=== PATIENT | female | born 1940 | race Caucasian/White ===

== ENCOUNTER 2019-10-25 10:04 | Outpatient (CLI) | payer MEDICARE, SELFPAY ==
--- NOTE | ~2019-10-25 | CT_ITS ---
EXAMINATION: CT chest wo con EXAM DATE: 10/25/2019 10:30 INDICATION: Personal history of lung cancer TECHNIQUE: Spiral low dose CT of the chest without contrast. Axial, coronal and sagittal images were reviewed. The dose-length product (DLP) for this examination was 133.34 mGy-cm. The exposure was t ailored according to patient size (auto mA exposure control), and iterative reconstruction (ASIR) was used as additional dose reduction technique. There is no prior study for comparison. FINDINGS: Status post partial left pneumonectomy. There is moderate emphysema. Biapical opacities whi ch are predominantly linear, most likely scarring. Tracheobronchial tree is patent. There is no med iastinal, hilar or axillary lymphadenopathy. There are no pleural or pericardial effusions. There is no pneumothorax. Heart normal in size. There is mild coronary arterial calcification, arteria l sclerosis. Fluid density left liver lobe lesion measuring 1.3 cm, consistent with cyst. There is mild thoracic spondylosis without osteoblastic or osteolytic lesions identified. IMPRESSION: 1. Partial left pneumonectomy. 2. Biapical opacities likely scarring. 3. Moderate emphysema. Reviewed, dictated and finalized at location A. CAL ASSISTANT DERMATOLOGY
== END 2019-10-25 10:05 | disposition home or self-care (01) ==
PROVIDERS: PCP Family Medicine
DX: Z85.118 Personal history of other malignant neoplasm of bronchus and lung (principal); J43.9 Emphysema, unspecified; R91.8 Other nonspecific abnormal finding of lung field
CPT/HCPCS: 71250

== ENCOUNTER 2020-02-03 10:50 | Outpatient (CLI) | payer MEDICARE, SELFPAY ==
--- NOTE | ~2020-02-03 | XR_ITS ---
EXAMINATION: XR chest 2V DATE: 02/03/2020 11:14 INDICATION: Cough and shortness of breath, history of lung cancer TECHNIQUE: Frontal and lateral views of the chest are obtained COMPARISON: 08/14/2019 FINDINGS: There are changes of left upper lobectomy. The lungs are free of acute opacities. There is no pleural effusion or pneumothorax. The cardiomediastinal silhouette is normal. There is mild thorac ic spondylosis. Cholecystectomy clips are noted in the right upper quadrant. IMPRESSION: 1. No acute cardiopulmonary abnormality. Reviewed, dictated and finalized at location A.
== END 2020-02-03 10:51 | disposition home or self-care (01) ==
PROVIDERS: PCP Family Medicine; Visit Provider Physician Assistant
DX: R05 Cough (principal); J44.9 Chronic obstructive pulmonary disease, unspecified
CPT/HCPCS: 71046

== ENCOUNTER 2020-03-21 10:28 | Outpatient (CLI) | payer MEDICARE, SELFPAY ==
--- NOTE | ~2020-03-21 | MM_ITS ---
EXAMINATION: MM screening [facility] BI w valerio HISTORY: Screening mammogram TECHNIQUE: Craniocaudal and mediolateral oblique 3-D tomosynthesis images were obtained and synthetic 2-D images were generated. CAD analysis was submitted and interpreted. COMPARISON: 12/14/2018, 12/11/2017, 12/09/2016 BREAST PARENCHYMAL COMPOSITION: There are scattered areas of fibroglandular density. FINDINGS: There is no evidence of suspicious mass, calcification, or architectural distortion to sugg est malignancy in either breast. There has been no suspicious interval change. IMPRESSION: 1. No mammographic evidence of malignancy. 2. Recommend routine screening mammography in one year. BI-RADS Category 1: Negative Reviewed, dictated and finalized at location A.
== END 2020-03-21 10:29 | disposition home or self-care (01) ==
LOC: ANHIMG 10:31
PROVIDERS: PCP Family Medicine; Visit Provider Family Medicine
DX: Z12.31 Encounter for screening mammogram for malignant neoplasm of breast (principal)
CPT/HCPCS: 77063; 77067

== ENCOUNTER 2020-07-21 06:51 | Outpatient (NON) | payer MEDICARE, SELFPAY ==
[2020-07-24 12:52] LABS: SARS-CoV-2 RNA PCR Negative
== END 2020-07-21 06:52 ==
LOC: ANHCOVIDDT 07:07
PROVIDERS: Visit Provider Family Medicine
DX: Z20.828 Contact with and (suspected) exposure to other viral communicable diseases (principal); R05 Cough
CPT/HCPCS: 87635; C9803; U0003

== ENCOUNTER 2020-08-09 16:43 | Outpatient (CLI) | payer MEDICARE, SELFPAY ==
[2020-08-09 17:14] LABS: Basophils Percent Auto 0.5 % (0.2-1.2); Hematocrit 38.4 % (37.0-47.0); Hemoglobin 13.1 g/dL (12.0-15.0); Immature Granulocyte Absolute 0.04 K/mm3 (0.00-0.031); Lymphocytes Absolute Auto 0.64 K/mm3 (0.9-3.2); Lymphocytes Percent Auto 15.2 % (18.3-44.2); Mean Corpuscular HGB Conc 34.1 g/dl (32-36); Mean Corpuscular Hemoglobin 32.3 pg (26-34); Mean Corpuscular Volume 94.8 fl (80-100); Mean Platelet Volume 9.5 fl (7.4-10.4); Monocytes Absolute Auto 0.6 K/mm3 (0.1-0.6); Neutrophils Absolute Auto 2.9 K/mm3 (1.3-6.7); Neutrophils Percent Auto 68.3 % (45.5-73.1); Platelet Count Result 256 k/mm3 (150-375); Red Blood Count 4.05 M/mm3 (4.2-5.4); Red Cell Distribution Width 13.9 % (11.5-14.5); White Blood Count 4.2 K/mm3 (4.5-10.0)
[2020-08-09 17:22] LABS: Add Urine Microscopic? YES; Appearance Urine Cloudy (Clear); Bacteria Urine Trace /hpf; Bilirubin Urine Negative (Negative); Blood Urine Negative (Negative); Color Urine Yellow (Yellow); Glucose Urine UA Negative (Negative); Ketones Urine Negative (Negative); Leukocyte Esterase Ur Negative LEU/UL (NEGATIVE); Mucus Urine Rare /lpf; Nitrate Urine Negative (Negative); Protein Urine Negative (Negative); RBC Urine 0-2 /hpf (0-2); Specific Grav Ur 1.011 (1.001-1.035); Squamous Epithelial Cell Urine Many /hpf (Few); Urobilinogen Urine Negative mg/dL (<2.0); WBC Urine 0-3 /hpf (0-3)
[2020-08-09 17:26] LABS: Alanine Aminotransferase 34 U/L (4-35); Albumin Level 3.7 g/dL (3.5-5.1); Alkaline Phosphatase 40 U/L (38-126); Anion Gap 12 mmol/L (8-16); Aspartate Amino Transferase 82 U/L (14-36); Bilirubin,Total 0.3 mg/dL (0.2-1.3); Blood Urea Nitrogen 40 mg/dL (7-17); Calcium 9.2 mg/dL (8.4-10.2); Carbon Dioxide 23 mmol/L (22-30); Chloride 97 mmol/L (98-107); Estimated Glomerular Filt Rate 15; Glucose 96 mg/dL (65-105); Sodium 132 mmol/L (137-145)
== END 2020-08-09 16:44 | disposition home or self-care (01) ==
LOC: ANHLAB 16:46
PROVIDERS: PCP Family Medicine; Visit Provider Family Medicine
DX: R53.81 Other malaise (principal)
CPT/HCPCS: 36415; 80053; 81001; 85025

== ENCOUNTER 2020-08-10 08:23 | Emergency (ER) | payer MEDICARE, SELFPAY ==
[2020-08-10] VITALS (7 sets, daily range): BP systolic 103–127; BP diastolic 51–76; PULSE 70–87; RESP 21–30; TEMP 36.7–37.4; O2SAT 95–100
--- NOTE | ~2020-08-10 | XR_ITS ---
EXAMINATION: XR chest 1V portable DATE: 08/10/2020 10:01 INDICATION: Shortness of breath. TECHNIQUE: A single frontal view of the chest was obtained. COMPARISON: Chest 2 views 02/03/2020, chest CT 10/25/2019 FINDINGS: There are surgical clips and left lung volume loss from left upper lobectomy. There is a pr ominent right paracardial fat pad. No pneumonia, pleural effusion, or pneumothorax. The heart size is normal. Surgical clips in the right upper quadrant are likely from cholecystectomy. IMPRESSION: 1. No acute cardiopulmonary disease. Reviewed, dictated and finalized at location A. GE OPERATOR SLIP
--- NOTE | 2020-08-10 09:33 | ECG_ITS ---
Measurements Intervals [place] Rate: 77 P: 46 DC: 129 QRS: 31 QRSD: 86 T: 64 QT: 348 QTc: 394 Interpretive Statements SINUS RHYTHM EARLY PRECORDIAL R/S TRANSITION BASELINE ARTIFACT- I, II, III, AVR, AVL, AVF BORDERLINE ECG Electronically Signed On 08-10-2020 10:39:28 CONTROL PANEL BUILDER by Edwin Stringer D.O.
[2020-08-10 09:34] LABS: Basophils Percent Auto 0.6 % (0.2-1.2); Hematocrit 35.9 % (37.0-47.0); Hemoglobin 12.4 g/dL (12.0-15.0); Immature Granulocyte Absolute 0.05 K/mm3 (0.00-0.031); Lymphocytes Absolute Auto 0.69 K/mm3 (0.9-3.2); Lymphocytes Percent Auto 14.2 % (18.3-44.2); Mean Corpuscular HGB Conc 34.5 g/dl (32-36); Mean Corpuscular Volume 92.8 fl (80-100); Mean Platelet Volume 9.7 fl (7.4-10.4); Monocytes Absolute Auto 0.6 K/mm3 (0.1-0.6); Monocytes Percent Auto 12.1 % (2.6-8.5); Neutrophils Absolute Auto 3.5 K/mm3 (1.3-6.7); Neutrophils Percent Auto 72.1 % (45.5-73.1); Platelet Count Result 229 k/mm3 (150-375); Red Blood Count 3.87 M/mm3 (4.2-5.4); Red Cell Distribution Width 13.7 % (11.5-14.5); White Blood Count 4.9 K/mm3 (4.5-10.0)
[2020-08-10 09:42] LABS: Alveolar/Arterial O2 Gradient 80.5 mmHg; Base Excess ABG -3.7 mEq/l (+/-2.0); Device NASAL CANNULA; Fractional Inspired Oxygen 28 %; HCO3 ABG 20.2 mEq/l (22.0-26.0); Oxygen Content ABG 17.5 %vol (16.0-22.0); Oxyhemoglobin 94.6 % THb (90.0-100.0); PCO2 ABG 33.2 mmHg (35.0-45.0); PO2 FiO2 Ratio Arterial Blood 2.86 %; Site Drawn RIGHT BRACHIAL; Total Hemoglobin 13.1 g/dL (12.0-18.0); pH ABG 7.402 (7.350-7.450)
[2020-08-10 09:42] LABS: Prothrombin Time 13.7 Seconds (11.1-14.7)
[2020-08-10 09:46] LABS: Lactic Acid Reflex 1.1 mmol/L (0.7-2.1)
[2020-08-10 09:57] LABS: Alanine Aminotransferase 36 U/L (4-35); Albumin Level 3.5 g/dL (3.5-5.1); Alkaline Phosphatase 41 U/L (38-126); Anion Gap 13 mmol/L (8-16); Aspartate Amino Transferase 91 U/L (14-36); Bilirubin,Total 0.4 mg/dL (0.2-1.3); Blood Urea Nitrogen 42 mg/dL (7-17); CRP 8.4 mg/dL (<1.0); Calcium 8.8 mg/dL (8.4-10.2); Carbon Dioxide 21 mmol/L (22-30); Chloride 98 mmol/L (98-107); Estimated CRCL calculation 10 ml/min; Estimated Glomerular Filt Rate 13; Glucose 97 mg/dL (65-105); Potassium 4.5 mmol/L (3.4-5.0); Sodium 132 mmol/L (137-145)
--- NOTE | 2020-08-10 10:38 | ED.GENADULT ---
HPI - General Adult General Chief complaint: Shortness of Breath/Dyspnea Stated complaint: SOB, fatigue, diarrhea Time Seen by Provider: 08/10/20 09:11 Source: family and EMS Limitations: dementia History of Present Illness HPI narrative: 80 years old white female history of dementia brought to the emergency room by her granddaughter who is telling me that patient been having poor appetite, general weakness, lethargic with long hours of sleep, at least 4 episodes of loose stool since yesterday, unable to manage to stand the and walk without medical assistant internal medicine for the last few days. Patient had history of shortness of breath which is probably worse than usual. Patient was scheduled to get blood work-up today and her granddaughter was not able to assist to her to go to the lab. Brought her to the hospital instead. Currently patient is asymptomatic, Granddaughter denied that the patient had any history of fever, chills, coughing, sore throat, headache or COVID-19 infection. The granddaughter was diagnosed of Covid 1 month ago, unknown living well Related Data Home Medications Medication Instructions Recorded Confirmed loratadine 10 mg tablet 10 mg PO DAILY 07/12/19 07/25/20 Allergies Allergy/AdvReac Type Severity Reaction Status Date / Time No Known Allergies Allergy Verified 08/10/20 10:31 Review of Systems Review of Systems: ROS unobtainable: Yes unobtainable due to mental status PMFSH Past Medical History Medical History Allergic rhinitis Chronic kidney disease, stage 3 (moderate) Chronic obstructive pulmonary disease, unspecified Dementia without behavioral disturbance Hypertensive chronic kidney disease with stage 1 through stage 4 chronic kidney disease, or unspecified chronic kidney disease Hypothyroidism, unspecified OAB (overactive bladder) Vitamin B12 deficiency Surgical History Surgical History History of bladder suspension procedure History of cholecystectomy History of hysterectomy with bilateral oophorectomy Status post partial lobectomy of lung left upper lobe Social History Social History Smoking packs per day: 1 Smoking cigarettes per day: 20.0 Years smoked: 40 Smoking pack-years: 40.00 Smoking status: Former smoker Tobacco type: cigarettes Second hand tobacco smoke exposure: Yes Smoking end date: 09/07/90 Alcohol intake: never Substance use: never Substance use type: does not use Gender identity (if verbalized by the patient): Female Exam Narrative: Exam Narrative: General appearance: Well-developed, well-nourished Skin: Normal color Head: Normocephalic, nontraumatic Eyes: Clear conjunctiva ENT: Oropharynx normal, ears normal, nose normal Neck: Supple, nontender Chest and respiratory: Airway patent, no respiratory distress, no accessory muscle use Heart: Regular rate/rhythm Abdomen: Soft, nontender, no organomegaly, quiet bowel sounds Musculoskeletal: Normal range of motion, nontender back Neurologic: Alert and oriented to her name only Course Course Emergency Course: Stable Vital Signs Vital signs: Vital Signs Temperature 37.4 C 08/10/20 09:00 Pulse Rate 76 08/10/20 09:00 Respiratory Rate 30 H 08/10/20 09:00 Blood Pressure 103/55 L 08/10/20 09:00 Pulse Oximetry 98 08/10/20 09:00 Temperature 36.7 C 08/10/20 11:55 Pulse Rate 87 08/10/20 11:55 Respiratory Rate 21 H 08/10/20 11:55 Blood Pressure 127/57 L 08/10/20 11:55 Pulse Oximetry 95 08/10/20 11:55 Medical Decision Making MDM Narrative Me
[2020-08-10] MEDS: SODIUM CHLORIDE 0.9% IV 1,000 ML 999 ML IV CONT (11:02)
[2020-08-10 11:31] LABS: Add Urine Microscopic? YES; Appearance Urine Cloudy (Clear); Bacteria Urine Trace /hpf; Bilirubin Urine Negative (Negative); Blood Urine Negative (Negative); Color Urine Yellow (Yellow); Glucose Urine UA Negative (Negative); Ketones Urine Negative (Negative); Leukocyte Esterase Ur Negative LEU/UL (Negative); Mucus Urine Rare /lpf; Nitrate Urine Negative (Negative); Protein Urine Negative (Negative); RBC Urine 0-2 /hpf (0-2); Renal Epithelial Cells Urine Rare /hpf (None Seen); Specific Grav Ur 1.012 (1.001-1.035); Squamous Epithelial Cell Urine Many /hpf (Few); Urobilinogen Urine Negative mg/dL (<2.0); WBC Urine 0-3 /hpf
--- NOTE | 2020-08-10 12:01 | PC.NURSE ---
Patient to room air at this time.
--- NOTE | 2020-08-10 12:08 | PC.NURSE ---
EDP tells patient and family member that the patient needs to be admitted for continued treatment. Patient is awake, alert, and oriented, states she does not want to be admitted. Patient's family member speaking with EDP at this time regarding admission to hospital. Patient's family member was made aware of the visitor policy relating to COVID at this time.
[2020-08-10 19:10] LABS: SARS-CoV-2 RNA PCR Positive
== END 2020-08-10 13:03 | disposition left against medical advice (07) ==
PROVIDERS: Emergency Provider Emergency Medicine; PCP Family Medicine
DX: E86.0 Dehydration (principal); R53.1 Weakness; Z20.828 Contact with and (suspected) exposure to other viral communicable diseases; Z87.891 Personal history of nicotine dependence; I12.9 Hypertensive chronic kidney disease with stage 1 through stage 4 chronic kidney disease, or unspecified chronic kidney disease; N18.30 Chronic kidney disease, stage 3 unspecified; J44.9 Chronic obstructive pulmonary disease, unspecified; F03.90 Unspecified dementia, unspecified severity, without behavioral disturbance, psychotic disturbance, mood disturbance, and anxiety; E03.9 Hypothyroidism, unspecified; Z90.2 Acquired absence of lung [part of]
CPT/HCPCS: 36415; 36600; 71045; 80053; 81001; 82805; 83605; 85025; 85610; 85730; 86140; 87040; 87635; 93005; 96360; 99283; C9803; J7030; U0003

== ENCOUNTER 2020-08-10 15:21 | Inpatient (IN) | payer MEDICARE, SELFPAY ==
[2020-08-10] VITALS (14 sets, daily range): BP systolic 93–120; BP diastolic 43–64; PULSE 69–79; RESP 18–31; TEMP 36.3–36.9; O2SAT 89–96; BMI 25.4
--- NOTE | ~2020-08-10 | XR_ITS ---
EXAMINATION: XR chest 1V portable INDICATION: Hypoxia TECHNIQUE: Portable AP chest at 1642 hours COMPARISON: 08/13/2020 FINDINGS: Diffuse interstitial and airspace opacities persist in the right lung with slight improveme nt. There are minimal airspace opacities of the left lung base. The cardiomediastinal silhouette is s table. No pleural effusion or pneumothorax is identified. IMPRESSION: 1. Persistent but improved interstitial and airspace opacities of the right lung, and left basilar ai rspace opacities, consistent with pulmonary edema and/or pneumonia. Reviewed, dictated and finalized at location A. OPERATIONS SUPERVISOR IMPRESSION: 1. Persistent but improved interstitial and airspace opacities of the right tang g, and left basilar airspace opacities, consistent with pulmonary edema and/or pneumonia.
--- NOTE | ~2020-08-10 | XR_ITS ---
EXAMINATION: XR chest 1V portable DATE: 08/17/2020 05:58 INDICATION: COVID TECHNIQUE: frontal view of the chest was obtained. COMPARISON: Chest radiograph dated 08/15/2020 FINDINGS: Postoperative change of prior left lower lobectomy with volume loss and increased lucency in the left hemithorax and elevation of the left hemidiaphragm. Diffuse increased interstitial pattern throughou t the right lung and in the left lower lung zone. No pleural effusion or pneumothorax. The cardiomedi astinal silhouette is normal. IMPRESSION: 1. No significant interval change in a diffuse increased interstitial pattern consistent with pulmona ry edema or pneumonia. 2. Status post left lower lobectomy. Reviewed, dictated and finalized at location A. TIVE SERVICES COORDINATOR IMPRESSION: 1. No significant interval change in a diffuse increased interstitial pattern c onsistent with pulmonary edema or pneumonia. 2. Status post left lower lobectomy.
--- NOTE | ~2020-08-10 | XR_ITS ---
EXAMINATION: XR chest 1V portable DATE: 08/13/2020 05:41 INDICATION: COVID positive. Respiratory failure. TECHNIQUE: frontal view of the chest was obtained. COMPARISON: Chest radiograph dated 08/10/[address] dated 10/25/2019 FINDINGS: Slight interval increase in increased interstitial pattern and hazy airspace opacities throughout the right lung and at the left lower lung zone. Volume loss in the left hemithorax with elevation of the left hemidiaphragm. There is also increased lucency in the left mid and upper lung zone with cephala d displacement of the left hilum where there are several surgical clips, all consistent with prior le ft upper lobectomy. No pleural effusion or pneumothorax. Heart size is normal. Bone island at the rig ht humeral head. Cholecystectomy clips in the right upper quadrant. IMPRESSION: 1. Slight increase in interstitial and airspace opacities with right lung predominance which could re present pulmonary edema and/or pneumonia. 2. Postoperative change of prior left upper lobectomy. Reviewed, dictated and finalized at location A. LE HOME LOT UTILITY WORKER IMPRESSION: 1. Slight increase in interstitial and airspace opacities with right lung predo minance which could represent pulmonary edema and/or pneumonia. 2. Postoperative change of prior left upper lobectomy.
--- NOTE | 2020-08-10 16:10 | ED.GENADULT ---
HPI - General Adult General Chief complaint: Weakness Stated complaint: dehydration and oxygen/left ama Time Seen by Provider: 08/10/20 16:06 Source: family History of Present Illness HPI narrative: Patient was seen earlier today by me and had a diagnosis of chronic hyponatremia, and hypoxia. The patient and her family declined to be admitted at that time. Family physician was able to convince of the family to take her back to the emergency room for admission. Discharge no new complaint compared to the first visit few hours ago. Please look at my old records. Related Data Home Medications Medication Instructions Recorded Confirmed loratadine 10 mg tablet 10 mg PO DAILY 07/12/19 07/25/20 Allergies Allergy/AdvReac Type Severity Reaction Status Date / Time No Known Allergies Allergy Verified 08/10/20 10:31 Review of Systems Review of Systems: ROS unobtainable: Yes unobtainable due to mental status PMFSH Past Medical History Medical History Allergic rhinitis Chronic kidney disease, stage 3 (moderate) Chronic obstructive pulmonary disease, unspecified Dementia without behavioral disturbance Hypertensive chronic kidney disease with stage 1 through stage 4 chronic kidney disease, or unspecified chronic kidney disease Hypothyroidism, unspecified OAB (overactive bladder) Vitamin B12 deficiency Surgical History Surgical History History of bladder suspension procedure History of cholecystectomy History of hysterectomy with bilateral oophorectomy Status post partial lobectomy of lung left upper lobe Social History Social History Smoking packs per day: 1 Smoking cigarettes per day: 20.0 Years smoked: 40 Smoking pack-years: 40.00 Smoking status: Former smoker Tobacco type: cigarettes Second hand tobacco smoke exposure: Yes Smoking end date: 09/07/90 Alcohol intake: never Substance use: never Substance use type: does not use Gender identity (if verbalized by the patient): Female Exam Narrative: Exam Narrative: General appearance: Well-developed, well-nourished Skin: Normal color Head: Normocephalic, nontraumatic Eyes: Clear conjunctiva Chest and respiratory: Airway patent, no respiratory distress, no accessory muscle use Heart: Regular rate/rhythm Abdomen: Soft, nontender, no organomegaly, quiet bowel sounds Vascular: Normal peripheral pulses, normal capillary refill. Musculoskeletal: Normal range of motion, nontender back Neurologic: Alert and oriented to her name only Course Course Emergency Course: Stable Vital Signs Vital signs: Vital Signs Temperature 36.9 C 08/10/20 15:23 Pulse Rate 77 08/10/20 15:23 Respiratory Rate 18 08/10/20 15:23 Blood Pressure 93/59 L 08/10/20 15:23 Pulse Oximetry 95 08/10/20 15:23 Temperature 36.9 C 08/10/20 15:23 Pulse Rate 77 08/10/20 15:23 Respiratory Rate 18 08/10/20 15:23 Blood Pressure 93/59 L 08/10/20 15:23 Pulse Oximetry 95 08/10/20 15:23 Medical Decision Making MDM Narrative Medical decision making narrative: The plan to admit patient for KOMAL, hypoxia, possible COVID-19 infection Vital Signs Vital Signs: Vital Signs Temperature 36.9 C 08/10/20 15:23 Pulse Rate 77 08/10/20 15:23 Respiratory Rate 18 08/10/20 15:23 Blood Pressure 93/59 L 08/10/20 15:23 Pulse Oximetry 95 08/10/20 15:23 Temperature 36.9 C 08/10/20 15:23 Pulse Rate 77 08/10/20 15:23 Respiratory Rate 18 08/10/20 15:23 Blood Pressure 93/59 L 08/10/20 15:23 Pulse Oximetry
[2020-08-10] MEDS: SODIUM CHLORIDE 0.9% IV 1,000 ML 999 ML IV CONT (16:35)
--- NOTE | 2020-08-10 17:59 | PC.NURSE ---
attempted to call report. RN not available. she will call back.
--- NOTE | 2020-08-10 18:12 | PC.NURSE ---
report given to Hortensia on 3rd floor. patient can be transferred upstairs.
--- NOTE | 2020-08-10 18:25 | PC.NURSE ---
This patient, Karla Smith, was admitted to 3 [facility] Surg Room 304-01. Patient/family oriented to hospital policies and general routines including ID bracelet, bed and alarms, visiting hours, pain management, procedures, bathroom and other care routines, personal items, smoking policy, room service/diet, and visiting hours. Report received by Corazon Boswell. Patient/Family are encouraged to report perceived risks to care and to ask questions if they do not understand what they are told or what they should do.
[2020-08-10] MEDS: SODIUM CHLORIDE 0.9% IV 1,000 ML 100 ML IV CONT (19:44)
[2020-08-11] VITALS (9 sets, daily range): BP systolic 107–130; BP diastolic 41–64; PULSE 63–79; RESP 18–24; TEMP 36.2–37.1; O2SAT 94–99
--- NOTE | 2020-08-11 02:21 | PM.IMHP ---
H&P: HPI History of Present Illness Date/Time: 08/11/20 02:21 Chief complaint: abida,weakness,hypoxia Narrative: This is a pleasantly demented 80 year old female with known history of CKD stage III, COPD, lung cancer, and hypothyroidism among other comorbidities who presented to the ER yesterday for multiple visits with her granddaughter and complaining of generalized weakness, poor appetite, and diarrhea. Her family had reported that the patient seemed to have worsening shortness of breath although they denied any fevers, chills, coughing, chest pain, or other symptoms. Her granddaughter was COVID-19+ one month ago. The patient was evluated in the ER and found to have acute on chronic renal failure on routine labs. The patient was swabbed for COVID-19 which resulted positive. CXR was unremarkable. On my encounter with the patient she is asymptomatic and has no complaints. She is demented and can't tell me why she is here or any of her medical history. Review of Systems Review of Systems: All systems reviewed & are unremarkable except as noted in HPI and below PMFSH Past Medical History Medical History Allergic rhinitis Chronic kidney disease, stage 3 (moderate) Chronic obstructive pulmonary disease, unspecified Dementia without behavioral disturbance Hypertensive chronic kidney disease with stage 1 through stage 4 chronic kidney disease, or unspecified chronic kidney disease Hypothyroidism, unspecified OAB (overactive bladder) Vitamin B12 deficiency Surgical History Surgical History History of bladder suspension procedure History of cholecystectomy History of hysterectomy with bilateral oophorectomy Status post partial lobectomy of lung left upper lobe Social History Social History Smoking packs per day: 1 Smoking cigarettes per day: 20.0 Years smoked: 40 Smoking pack-years: 40.00 Smoking status: Never smoker Tobacco type: cigarettes Second hand tobacco smoke exposure: Yes Smoking end date: 09/07/90 Alcohol intake: never Substance use: never Substance use type: does not use Gender identity (if verbalized by the patient): Female Spiritual care concerns: No Meds Home Medications and Allergies Home Medications Medication Instructions Recorded Confirmed Type loratadine 10 mg tablet 10 mg PO DAILY 07/12/19 08/10/20 History fluticasone fur. 100 mcg-umeclid 1 inhalation INHALATION Q24H #90 01/16/20 08/10/20 Rx 62.5 mcg-vilant 25 mcg each inhalat.powder potassium chloride 10 mEq 10 meq PO DAILY #90 tablet 02/28/20 08/10/20 Rx tablet,extended release valsartan 40 mg tablet See Rx Instructions .ROUTE 03/19/20 08/10/20 Rx .COMPLEX #90 tablet estradiol 1 mg tablet 1 mg PO DAILY #90 tablet 03/20/20 08/10/20 Rx oxybutynin chloride 10 mg 10 mg PO DAILY #90 tablet 03/21/20 08/10/20 Rx tablet,extended release 24 hr rivastigmine tartrate 4.5 mg 4.5 mg PO BID #180 cap 05/18/20 08/10/20 Rx capsule triamterene 75 1 tablet PO DAILY #90 tablet 05/23/20 08/10/20 Rx mg-hydrochlorothiazide 50 mg tablet fenofibrate 160 mg tablet 160 mg PO DAILY #90 tablet 05/28/20 08/10/20 Rx levothyroxine 50 mcg tablet 50 mcg PO DAILY #90 tablet 05/28/20 08/10/20 Rx albuterol sulfate 2.5 mg INHALATION Q4-6H PRN #180 ml 07/23/20 08/10/20 Rx ipratropium bromide 0.02 % 2.5 ml INHALATION Q6H PRN #150 ml 07/23/20 08/10/20 Rx solution for inhalation albuterol sulfate [Ventolin HFA] 2 puff INHALATION Q4H PRN 08/10/20 08/10/20 History Allergies Allergy/AdvReac Type Severity Reaction Status Date / Time No Known Allergies Allergy Verified 08/10/20 10:31 Vital Signs Vital Signs - 24 hr 08/10/20 15:23 08/10/20 16:26 08/10/20 16:30 Temperature 36.9 C Pulse Rate 77 78 78 Respiratory Rate 18 23 H 25 H Blood Pressure 93/59 L Pu
[2020-08-11] MEDS: SODIUM CHLORIDE 0.9% IV 1,000 ML 100 ML IV CONT (05:46)
[2020-08-11] MEDS: LEVOTHYROXINE SODIUM 50 MCG TABLET PO (05:47)
[2020-08-11 05:54] LABS: Basophils Percent Auto 0.3 % (0.2-1.2); Eosinophils Percent Auto 0.3 % (0-4.4); Hematocrit 32.2 % (37.0-47.0); Hemoglobin 10.8 g/dL (12.0-15.0); Immature Granulocyte Absolute 0.04 K/mm3 (0.00-0.031); Immature Granulocyte Percent A 1.3 % (0-0.5); Lymphocytes Absolute Auto 0.52 K/mm3 (0.9-3.2); Mean Corpuscular HGB Conc 33.5 g/dl (32-36); Mean Corpuscular Hemoglobin 31.7 pg (26-34); Mean Corpuscular Volume 94.4 fl (80-100); Mean Platelet Volume 9.6 fl (7.4-10.4); Monocytes Absolute Auto 0.3 K/mm3 (0.1-0.6); Monocytes Percent Auto 8.5 % (2.6-8.5); Neutrophils Absolute Auto 2.2 K/mm3 (1.3-6.7); Neutrophils Percent Auto 72.6 % (45.5-73.1); Platelet Count Result 213 k/mm3 (150-375); Red Blood Count 3.41 M/mm3 (4.2-5.4); White Blood Count 3.1 K/mm3 (4.5-10.0)
[2020-08-11 06:16] LABS: Anion Gap 11 mmol/L (8-16); Blood Urea Nitrogen 39 mg/dL (7-17); Calcium 7.4 mg/dL (8.4-10.2); Carbon Dioxide 19 mmol/L (22-30); Chloride 106 mmol/L (98-107); Estimated CRCL calculation 14 ml/min; Estimated Glomerular Filt Rate 19; Glucose 85 mg/dL (65-105); Potassium 4.4 mmol/L (3.4-5.0); Sodium 136 mmol/L (137-145)
[2020-08-11] MEDS: LORATADINE 10 MG TABLET PO (08:42)
[2020-08-11] MEDS: ENOXAPARIN 30 MG/0.3 ML SYRINGE SUB-Q (08:42)
[2020-08-11] MEDS: RIVASTIGMINE TARTRATE 1.5 MG CAPSULE 4.5 MG PO ×2 (08:42→17:49)
[2020-08-11] MEDS: FENOFIBRATE 160 MG TABLET PO (08:42)
[2020-08-11] MEDS: VALSARTAN 40 MG TABLET BY MOUTH (08:44)
--- NOTE | 2020-08-11 11:15 | PC.NURSE ---
Patient walked to the bathroom and back O2 Sat 83%. oxygen increased to 4L.
[2020-08-11] MEDS: DEXAMETHASONE 2 MG TABLET 6 MG PO (12:00)
--- NOTE | 2020-08-11 12:34 | PHAR ---
PT'S HOME MED ANU URIBE MDI VERIFIED BY PHARMACY
--- NOTE | 2020-08-11 13:44 | PM.IMPN ---
Progress Note: A&P Assessment and Plan (1) COVID-19: Code(s): U07.1 - COVID-19 Status: Acute Assessment and Plan: Presents with weakness and SOB. COVID positive 08/10/20. Continue dexamethasone (day 1). Not a good candidate for remdesivir due to GFR < 30. Continue supplemental O2 and wean as tolerated to keep O2 saturations > 90%. Continue supportive care with Tylenol for fevers, albuterol MDI, incentive spirometer, supplementation of Zinc, vitamins C and D. DVT prophylaxis with renally dosed Lovenox. (2) Acute respiratory failure with hypoxia: Code(s): J96.01 - Acute respiratory failure with hypoxia Status: Acute Assessment and Plan: Secondary to above. On 3L/min nasal cannula today. (3) KOMLA (acute kidney injury): Code(s): N17.9 - Acute kidney failure, unspecified Status: Acute Assessment and Plan: Cr elevated to 3.3 yesterday, improved to 2.4 today. Family was unaware she had any issues with her kidneys however Cr was 2.1 one year ago suggesting some degree of CKD. She was treated with IV fluids on arrival which are stopped as she has COVID with respiratory failure. Avoid nephrotoxic agents and monitor renal function. (4) Acute dehydration: Code(s): E86.0 - Dehydration Status: Acute Assessment and Plan: Improved, suspect secondary to decreased oral intake and diarrhea. Received IV fluids on arrival. Will monitor. (5) Dementia without behavioral disturbance: Qualifiers: Dementia type: unspecified type Qualified Code(s): F03.90 - Unspecified dementia without behavioral disturbance Code(s): F03.90 - Unspecified dementia without behavioral disturbance Status: Chronic Assessment and Plan: Stable. (6) Hypothyroidism, unspecified: Qualifiers: Hypothyroidism type: unspecified Qualified Code(s): E03.9 - Hypothyroidism, unspecified Code(s): E03.9 - Hypothyroidism, unspecified Status: Chronic Assessment and Plan: Continue home levothyroxine. (7) Chronic obstructive pulmonary disease, unspecified: Qualifiers: COPD type: unspecified COPD Qualified Code(s): J44.9 - Chronic obstructive pulmonary disease, unspecified Code(s): J44.9 - Chronic obstructive pulmonary disease, unspecified Status: Chronic Assessment and Plan: Continue her home trelogy; albuterol MDI. (8) H/O: HTN (hypertension): Code(s): Z86.79 - Personal history of other diseases of the circulatory system Status: Chronic Assessment and Plan: Stable, last 130/41. Hold diuretics secondary to acute renal failure. Continue valsartan. Monitor BP and adjust treatment as needed. Subjective Date/time seen: 08/11/20 13:15 Interval history: Ms. Smith is an 80yo F with dementia admitted for acute respiratory failure secondary to COVID pneumonia. She reports her shortness of breath is improved. She is a bit forgetful with dementia but offers no complaints. Notified by nursing that she got pretty short of breath walking to the bathroom. During my assessment she had oxygen nasal cannula off. She was unsure if she took this off or not. I checked her O2 saturation which was 86% on room air, placed her back on 3L and saturations improved to 93-96%. Called and spoke with daughters Jessy and Shayla for updates. Review of Systems Review of Systems: All systems reviewed & are unremarkable except as noted in HPI and below Exam Narrative: Exam Narrative: General: Female resting comfortably supine in bed in no acute distress. HEENT: [place]
[2020-08-11] MEDS: ASCORBIC ACID 500 MG TABLET PO (17:48)
[2020-08-11] MEDS: ZINC SULFATE 220 MG CAPSULE PO (17:48)
[2020-08-11] MEDS: CHOLECALCIFEROL 1,000 UNITS TABLET 1000 UNITS PO (17:48)
[2020-08-12] VITALS (12 sets, daily range): BP systolic 102–141; BP diastolic 50–64; PULSE 52–71; RESP 18–20; TEMP 35.8–36.6; O2SAT 86–100
[2020-08-12] MEDS: LEVOTHYROXINE SODIUM 50 MCG TABLET PO (05:45)
[2020-08-12 05:58] LABS: Hematocrit 31.9 % (37.0-47.0); Hemoglobin 10.7 g/dL (12.0-15.0); Immature Granulocyte Absolute 0.03 K/mm3 (0.00-0.031); Lymphocytes Absolute Auto 0.46 K/mm3 (0.9-3.2); Lymphocytes Percent Auto 15.9 % (18.3-44.2); Mean Corpuscular HGB Conc 33.5 g/dl (32-36); Mean Corpuscular Hemoglobin 31.4 pg (26-34); Mean Corpuscular Volume 93.5 fl (80-100); Mean Platelet Volume 9.5 fl (7.4-10.4); Monocytes Absolute Auto 0.3 K/mm3 (0.1-0.6); Monocytes Percent Auto 11.8 % (2.6-8.5); Neutrophils Absolute Auto 2.1 K/mm3 (1.3-6.7); Neutrophils Percent Auto 71.3 % (45.5-73.1); Platelet Count Result 209 k/mm3 (150-375); Red Blood Count 3.41 M/mm3 (4.2-5.4); Red Cell Distribution Width 13.9 % (11.5-14.5); White Blood Count 2.9 K/mm3 (4.5-10.0)
[2020-08-12 06:33] LABS: Alanine Aminotransferase 33 U/L (4-35); Alkaline Phosphatase 35 U/L (38-126); Anion Gap 6 mmol/L (8-16); Aspartate Amino Transferase 98 U/L (14-36); Bilirubin,Total 0.4 mg/dL (0.2-1.3); Blood Urea Nitrogen 35 mg/dL (7-17); CRP 14.1 mg/dL (<1.0); Calcium 7.6 mg/dL (8.4-10.2); Carbon Dioxide 24 mmol/L (22-30); Chloride 105 mmol/L (98-107); Estimated CRCL calculation 17 ml/min; Estimated Glomerular Filt Rate 25; Glucose 96 mg/dL (65-105); Magnesium 1.5 mg/dL (1.6-2.3); Potassium 4.4 mmol/L (3.4-5.0); Sodium 135 mmol/L (137-145)
[2020-08-12] MEDS: FLUTICASONE/UMECLIDIN/VILANTER 100-62.5-25 MCG ELLIPTA 1 PUFF INHALATION (07:39)
[2020-08-12] MEDS: MAGNESIUM SULF 2 GM/WATER 50ML 2 GM/50 ML BAG IVPB (09:19)
[2020-08-12] MEDS: ZINC SULFATE 220 MG CAPSULE PO (09:20)
[2020-08-12] MEDS: RIVASTIGMINE TARTRATE 1.5 MG CAPSULE 4.5 MG PO ×2 (09:20→17:13)
[2020-08-12] MEDS: ASCORBIC ACID 500 MG TABLET PO (09:20)
[2020-08-12] MEDS: LORATADINE 10 MG TABLET PO (09:20)
[2020-08-12] MEDS: DEXAMETHASONE 2 MG TABLET 6 MG PO (09:21)
[2020-08-12] MEDS: CHOLECALCIFEROL 1,000 UNITS TABLET 1000 UNITS PO (09:21)
[2020-08-12] MEDS: FENOFIBRATE 160 MG TABLET PO (09:21)
[2020-08-12] MEDS: CYANOCOBALAMIN INJ 1,000 MCG/ML VIAL 1000 MCG IM (09:21)
[2020-08-12] MEDS: ENOXAPARIN 30 MG/0.3 ML SYRINGE SUB-Q (09:21)
[2020-08-12] MEDS: VALSARTAN 40 MG TABLET BY MOUTH (09:22)
--- NOTE | 2020-08-12 10:46 | PM.IMPN ---
Progress Note: A&P Assessment and Plan (1) COVID-19: Code(s): U07.1 - COVID-19 Status: Acute Assessment and Plan: Presents with weakness and SOB. COVID positive 08/10/20. Continue dexamethasone (day 2). Not a good candidate for remdesivir due to GFR < 30. Continue supplemental O2 and wean as tolerated to keep O2 saturations > 90%. Continue supportive care with Tylenol for fevers, albuterol MDI, incentive spirometer, supplementation of Zinc, vitamins C and D. DVT prophylaxis with renally dosed Lovenox. (2) Acute respiratory failure with hypoxia: Code(s): J96.01 - Acute respiratory failure with hypoxia Status: Acute Assessment and Plan: Secondary to above. On 2L/min nasal cannula this afternoon. (3) KOMAL (acute kidney injury): Code(s): N17.9 - Acute kidney failure, unspecified Status: Acute Assessment and Plan: Cr improved to 1.9 today. Family was unaware she had any issues with her kidneys however Cr was 2.1 one year ago suggesting some degree of CKD. She was treated with IV fluids on arrival which are stopped as she has COVID with respiratory failure. Avoid nephrotoxic agents and monitor renal function. (4) Dementia without behavioral disturbance: Qualifiers: Dementia type: unspecified type Qualified Code(s): F03.90 - Unspecified dementia without behavioral disturbance Code(s): F03.90 - Unspecified dementia without behavioral disturbance Status: Chronic Assessment and Plan: Stable. (5) Hypothyroidism, unspecified: Qualifiers: Hypothyroidism type: unspecified Qualified Code(s): E03.9 - Hypothyroidism, unspecified Code(s): E03.9 - Hypothyroidism, unspecified Status: Chronic Assessment and Plan: Continue home levothyroxine. (6) Chronic obstructive pulmonary disease, unspecified: Qualifiers: COPD type: unspecified COPD Qualified Code(s): J44.9 - Chronic obstructive pulmonary disease, unspecified Code(s): J44.9 - Chronic obstructive pulmonary disease, unspecified Status: Chronic Assessment and Plan: Continue her home trelogy; albuterol MDI. (7) H/O: HTN (hypertension): Code(s): Z86.79 - Personal history of other diseases of the circulatory system Status: Chronic Assessment and Plan: Stable, last . Hold diuretics secondary to acute renal failure. Continue valsartan. Monitor BP and adjust treatment as needed. Subjective Date/time seen: 08/12/20 10:50 Interval history: Ms. Smith is an 80yo F with dementia admitted for acute respiratory failure secondary to COVID pneumonia. She tells me she feels well. She notes she doesn't feel particularly short of breath resting in the chair. She denies chest pain. She has not eaten any of her breakfast but denies nausea or vomiting. A bit forgetful with dementia but offers no complaints. Review of Systems Review of Systems: All systems reviewed & are unremarkable except as noted in HPI and below Exam Narrative: Exam Narrative: General: Female resting comfortably supine in bed in no acute distress. HEENT: Normocephalic, EOMI, oral mucosa moist. Cardiovascular: Rate and rhythm are regular. Respiratory: Decreased breath sounds bilaterally. Respirations even and non-labored. Abdomen: Soft, non-tender, non-distended, bowel sounds present. Extremities: Peripheral pulses intact. No edema. Neuro: Pleasantly confused, memory deficits noted. She is alert and oriented to self, knows she is in the hospital, disoriented to time. No focal neurological deficits. Speech is clear. Objective Data Vital Signs V
[2020-08-12] MEDS: WATER FOR IRRIGATION, STERILE 1,000 ML BOTTLE 1000 ML (17:12)
[2020-08-13] VITALS (14 sets, daily range): BP systolic 106–139; BP diastolic 47–85; PULSE 52–72; RESP 16–20; TEMP 36.5–37.1; O2SAT 90–100
[2020-08-13] MEDS: LEVOTHYROXINE SODIUM 50 MCG TABLET PO (05:15)
[2020-08-13 06:42] LABS: Hematocrit 33.3 % (37.0-47.0); Hemoglobin 11.4 g/dL (12.0-15.0); Immature Granulocyte Absolute 0.06 K/mm3 (0.00-0.031); Immature Granulocyte Percent A 0.8 % (0-0.5); Lymphocytes Absolute Auto 0.38 K/mm3 (0.9-3.2); Mean Corpuscular HGB Conc 34.2 g/dl (32-36); Mean Corpuscular Hemoglobin 31.7 pg (26-34); Mean Corpuscular Volume 92.5 fl (80-100); Mean Platelet Volume 9.7 fl (7.4-10.4); Monocytes Absolute Auto 0.6 K/mm3 (0.1-0.6); Monocytes Percent Auto 7.8 % (2.6-8.5); Neutrophils Absolute Auto 6.5 K/mm3 (1.3-6.7); Neutrophils Percent Auto 86.4 % (45.5-73.1); Platelet Count Result 265 k/mm3 (150-375); Red Cell Distribution Width 13.5 % (11.5-14.5); White Blood Count 7.5 K/mm3 (4.5-10.0)
[2020-08-13 07:42] LABS: Alanine Aminotransferase 36 U/L (4-35); Albumin Level 3.4 g/dL (3.5-5.1); Alkaline Phosphatase 49 U/L (38-126); Anion Gap 11 mmol/L (8-16); Aspartate Amino Transferase 112 U/L (14-36); Bilirubin,Total 0.4 mg/dL (0.2-1.3); Blood Urea Nitrogen 43 mg/dL (7-17); CRP 5.1 mg/dL (<1.0); Calcium 8.1 mg/dL (8.4-10.2); Carbon Dioxide 23 mmol/L (22-30); Chloride 104 mmol/L (98-107); Estimated CRCL calculation 20 ml/min; Estimated Glomerular Filt Rate 31; Glucose 88 mg/dL (65-105); Magnesium 2.2 mg/dL (1.6-2.3); Potassium 3.8 mmol/L (3.4-5.0); Sodium 138 mmol/L (137-145)
[2020-08-13] MEDS: FLUTICASONE/UMECLIDIN/VILANTER 100-62.5-25 MCG ELLIPTA 1 PUFF INHALATION (09:21)
[2020-08-13] MEDS: DEXAMETHASONE 2 MG TABLET 6 MG PO (09:22)
[2020-08-13] MEDS: ASCORBIC ACID 500 MG TABLET PO (09:23)
[2020-08-13] MEDS: FENOFIBRATE 160 MG TABLET PO (09:24)
[2020-08-13] MEDS: ZINC SULFATE 220 MG CAPSULE PO (09:24)
[2020-08-13] MEDS: ENOXAPARIN 30 MG/0.3 ML SYRINGE SUB-Q (09:24)
[2020-08-13] MEDS: CHOLECALCIFEROL 1,000 UNITS TABLET 1000 UNITS PO (09:24)
[2020-08-13] MEDS: VALSARTAN 40 MG TABLET BY MOUTH (09:24)
[2020-08-13] MEDS: LORATADINE 10 MG TABLET PO (09:24)
[2020-08-13] MEDS: RIVASTIGMINE TARTRATE 1.5 MG CAPSULE 4.5 MG PO ×2 (09:24→17:57)
--- NOTE | 2020-08-13 15:52 | PM.IMPN ---
Progress Note: A&P Assessment and Plan (1) COVID-19: Code(s): U07.1 - COVID-19 Status: Acute Assessment and Plan: Presents with weakness and SOB. COVID positive 08/10/20. Continue dexamethasone (day 3). Not a good candidate for remdesivir given her renal function. Continue supplemental O2 and wean as tolerated to keep O2 saturations > 90%. Continue supportive care with Tylenol for fevers, albuterol MDI, incentive spirometer, supplementation of Zinc, vitamins C and D. DVT prophylaxis with renally dosed Lovenox. Low dose lasix x 1 today. (2) Acute respiratory failure with hypoxia: Code(s): J96.01 - Acute respiratory failure with hypoxia Status: Acute Assessment and Plan: Secondary to above. Remote history of lung cancer s/p partial lobectomy left lung. Increasing oxygen requirements. Up to 15L nonrebreather this afternoon. Checking oxygen saturations on her ear due to poor circulation on fingers. (3) KOMAL (acute kidney injury): Code(s): N17.9 - Acute kidney failure, unspecified Status: Acute Assessment and Plan: Cr improved to 1.6 today. Family was unaware she had any issues with her kidneys however Cr was 2.1 one year ago suggesting some degree of CKD. She was treated with IV fluids on arrival which are stopped as she has COVID with respiratory failure. Avoid nephrotoxic agents and monitor renal function. (4) Dementia without behavioral disturbance: Qualifiers: Dementia type: unspecified type Qualified Code(s): F03.90 - Unspecified dementia without behavioral disturbance Code(s): F03.90 - Unspecified dementia without behavioral disturbance Status: Chronic Assessment and Plan: More confused today, suspect hospital delirium is contributing now. Keeps trying to get out of bed and keeps taking oxygen off. (5) Hypothyroidism, unspecified: Qualifiers: Hypothyroidism type: unspecified Qualified Code(s): E03.9 - Hypothyroidism, unspecified Code(s): E03.9 - Hypothyroidism, unspecified Status: Chronic Assessment and Plan: Continue home levothyroxine. (6) Chronic obstructive pulmonary disease, unspecified: Qualifiers: COPD type: unspecified COPD Qualified Code(s): J44.9 - Chronic obstructive pulmonary disease, unspecified Code(s): J44.9 - Chronic obstructive pulmonary disease, unspecified Status: Chronic Assessment and Plan: Continue her home trelogy; albuterol MDI. (7) H/O: HTN (hypertension): Code(s): Z86.79 - Personal history of other diseases of the circulatory system Status: Chronic Assessment and Plan: Stable, last 133/51. Hold diuretics secondary to acute renal failure. Continue valsartan. Monitor BP and adjust treatment as needed. Subjective Date/time seen: 08/13/20 1300 Interval history: Ms. Smith is an 80yo F with dementia admitted for acute respiratory failure secondary to COVID pneumonia. Due to her dementia her review of systems can be somewhat unreliable. She says her shortness of breath is much better despite her climbing oxygen requirements. She denies chest pain. Not eating much but no nausea, vomiting or abdominal pain. Review of Systems Review of Systems: All systems reviewed & are unremarkable except as noted in HPI and below Exam Narrative: Exam Narrative: General: Female resting comfortably supine in bed in no acute respiratory distress. HEENT: Normocephalic, EOMI, oral mucosa tacky. Cardiovascular: Rate and rhythm are regular. Respiratory: Decreased breath sounds bilaterally, faint right basilar rales. Respirations even and
[2020-08-13] MEDS: FUROSEMIDE INJ 40 MG/4 ML VIAL 20 MG IV PUSH (16:04)
--- NOTE | 2020-08-13 16:05 | PC.NURSE ---
Patient on 15L high flow and 15 L nonrebreather. Hafsa MORENO notified and aware.
[2020-08-13] MEDS: ALBUTEROL SULFATE (*SP) AEROSOL 1 PUFF 2 PUFF INHALATION (20:00)
[2020-08-14] VITALS (9 sets, daily range): BP systolic 108–127; BP diastolic 50–82; PULSE 60–100; RESP 16–20; TEMP 36.3–36.8; O2SAT 84–98
[2020-08-14] MEDS: ALBUTEROL SULFATE (*SP) AEROSOL 1 PUFF 2 PUFF INHALATION ×2 (02:02→08:14)
[2020-08-14 06:16] LABS: Basophils Percent Auto 0.3 % (0.2-1.2); Eosinophils Percent Auto 0.4 % (0-4.4); Hemoglobin 13.5 g/dL (12.0-15.0); Immature Granulocyte Absolute 0.12 K/mm3 (0.00-0.031); Immature Granulocyte Percent A 1.1 % (0-0.5); Lymphocytes Absolute Auto 0.33 K/mm3 (0.9-3.2); Lymphocytes Percent Auto 2.9 % (18.3-44.2); Mean Corpuscular HGB Conc 33.8 g/dl (32-36); Mean Corpuscular Hemoglobin 31.5 pg (26-34); Mean Corpuscular Volume 93.5 fl (80-100); Mean Platelet Volume 10.2 fl (7.4-10.4); Monocytes Percent Auto 8.5 % (2.6-8.5); Neutrophils Absolute Auto 9.8 K/mm3 (1.3-6.7); Neutrophils Percent Auto 86.8 % (45.5-73.1); Nucleated Red Blood Cells Perc 0.2 % (0.0-0.2); Platelet Count Result 332 k/mm3 (150-375); Red Blood Count 4.28 M/mm3 (4.2-5.4); Red Cell Distribution Width 13.6 % (11.5-14.5); White Blood Count 11.2 K/mm3 (4.5-10.0)
[2020-08-14 06:29] LABS: Alanine Aminotransferase 42 U/L (4-35); Albumin Level 4.1 g/dL (3.5-5.1); Alkaline Phosphatase 59 U/L (38-126); Anion Gap 16 mmol/L (8-16); Aspartate Amino Transferase 137 U/L (14-36); Bilirubin,Total 0.6 mg/dL (0.2-1.3); Blood Urea Nitrogen 53 mg/dL (7-17); Carbon Dioxide 24 mmol/L (22-30); Chloride 100 mmol/L (98-107); Estimated CRCL calculation 19 ml/min; Estimated Glomerular Filt Rate 29; Glucose 83 mg/dL (65-105); Magnesium 2.1 mg/dL (1.6-2.3); Potassium 3.3 mmol/L (3.4-5.0); Sodium 140 mmol/L (137-145)
[2020-08-14] MEDS: LEVOTHYROXINE SODIUM 50 MCG TABLET PO (06:40)
[2020-08-14] MEDS: FLUTICASONE/UMECLIDIN/VILANTER 100-62.5-25 MCG ELLIPTA 1 PUFF INHALATION (08:14)
[2020-08-14] MEDS: ASCORBIC ACID 500 MG TABLET PO (08:27)
[2020-08-14] MEDS: CHOLECALCIFEROL 1,000 UNITS TABLET 1000 UNITS PO (08:27)
[2020-08-14] MEDS: DEXAMETHASONE 2 MG TABLET 6 MG PO (08:27)
[2020-08-14] MEDS: LORATADINE 10 MG TABLET PO (08:28)
[2020-08-14] MEDS: ENOXAPARIN 30 MG/0.3 ML SYRINGE SUB-Q (08:28)
[2020-08-14] MEDS: FENOFIBRATE 160 MG TABLET PO (08:28)
[2020-08-14] MEDS: VALSARTAN 40 MG TABLET BY MOUTH (08:30)
[2020-08-14] MEDS: ZINC SULFATE 220 MG CAPSULE PO (08:30)
[2020-08-14] MEDS: RIVASTIGMINE TARTRATE 1.5 MG CAPSULE 4.5 MG PO ×2 (11:44→17:24)
--- NOTE | 2020-08-14 16:33 | PM.IMPN ---
Progress Note: A&P Assessment and Plan (1) COVID-19: Code(s): U07.1 - COVID-19 Status: Acute Assessment and Plan: COVID positive 08/10/20. -Continue dexamethasone (day 4). - Not a good candidate for remdesivir given her renal function. -Continue supplemental O2 and wean as tolerated to keep O2 saturations > 90%. -Continue supportive care with Tylenol for fevers, albuterol MDI, incentive spirometer, supplementation of Zinc, vitamins C and D. -DVT prophylaxis with renally dosed Lovenox. (2) Acute respiratory failure with hypoxia: Code(s): J96.01 - Acute respiratory failure with hypoxia Status: Acute Assessment and Plan: Secondary to above. Remote history of lung cancer s/p partial lobectomy left lung. -patient doing well on non-rebreather and is 97%, will wean oxygen (3) KOMAL (acute kidney injury): Code(s): N17.9 - Acute kidney failure, unspecified Status: Acute Assessment and Plan: Creatinine about the same as yesterday but overall improved since admission. - Family was unaware she had any issues with her kidneys however Cr was 2.1 one year ago suggesting some degree of CKD. -She was treated with IV fluids on arrival which are stopped as she has COVID with respiratory failure. -Avoid nephrotoxic agents and monitor renal function. (4) Dementia without behavioral disturbance: Qualifiers: Dementia type: unspecified type Qualified Code(s): F03.90 - Unspecified dementia without behavioral disturbance Code(s): F03.90 - Unspecified dementia without behavioral disturbance Status: Chronic Assessment and Plan: Confused today with no neurological deficits (5) Hypothyroidism, unspecified: Qualifiers: Hypothyroidism type: unspecified Qualified Code(s): E03.9 - Hypothyroidism, unspecified Code(s): E03.9 - Hypothyroidism, unspecified Status: Chronic Assessment and Plan: Continue levothyroxine (6) Chronic obstructive pulmonary disease, unspecified: Qualifiers: COPD type: unspecified COPD Qualified Code(s): J44.9 - Chronic obstructive pulmonary disease, unspecified Code(s): J44.9 - Chronic obstructive pulmonary disease, unspecified Status: Chronic Assessment and Plan: Continue inhalers, no wheezing on exam today (7) H/O: HTN (hypertension): Code(s): Z86.79 - Personal history of other diseases of the circulatory system Status: Chronic Assessment and Plan: last blood pressure 127/58. -Hold diuretics secondary to acute renal failure. -Continue valsartan. - Monitor BP and adjust treatment as needed. Time Spent With Patient Time with patient: 25 - 35 minutes Subjective Date/time seen: 08/14/20 16:33 Interval history: Pt is a 80-year-old female here for COVID. Patient has dementia and I am not sure how much she understands. She denies nausea, vomiting, fevers, chills, constipation, diarrhea, chest pain, sob, or abdominal pain. She denied having COVID-19 although she was told she test positive multiple times. Not nursing staff states she has been a little bit more rambunctious and trying to get out of bed today Review of Systems Review of Systems: All systems reviewed & are unremarkable except as noted in HPI and below Exam Narrative: Exam Narrative: General: Well developed well nourished patient in NAD HEENT: normocephalic Neck: supple Neuro: Alert and oriented to herself, birthday but did not know the situation, location or the year. She used all limbs spontaneously and did not appear to have any deficits CV:RRR Resp: Soft crackling to the bases, overall clear Abd: Soft, non distended. No pain to palpation. Positive bowel sounds Extremities: No swelling, erythema, or pain to palpation. Objective Data Vital Signs Vital Signs: Vital Signs - 24 hr 08/13/20 20:00 08/13/20 20:15 08/13/20 22:15 Temperat
[2020-08-14] MEDS: POTASSIUM CHLORIDE 20 MEQ TABLET 40 MEQ PO (17:23)
[2020-08-14] MEDS: LORazepam INJ (*CRX) 2 MG/ML VIAL 0.5 MG IV PUSH ×2 (17:25→23:37)
[2020-08-14] MEDS: ACETAMINOPHEN 325 MG TABLET 650 MG PO (17:26)
[2020-08-15] VITALS (10 sets, daily range): BP systolic 127–139; BP diastolic 56–77; PULSE 64–80; RESP 18–24; TEMP 36.6–36.9; O2SAT 87–95
[2020-08-15] MEDS: LEVOTHYROXINE SODIUM 50 MCG TABLET PO (05:38)
[2020-08-15 06:09] LABS: Hemoglobin 11.9 g/dL (12.0-15.0); Mean Corpuscular Hemoglobin 31.6 pg (26-34); Mean Corpuscular Volume 93.1 fl (80-100); Mean Platelet Volume 9.7 fl (7.4-10.4); Platelet Count Result 328 k/mm3 (150-375); Red Blood Count 3.76 M/mm3 (4.2-5.4); Red Cell Distribution Width 13.5 % (11.5-14.5); White Blood Count 10.6 K/mm3 (4.5-10.0)
[2020-08-15 06:23] LABS: Alanine Aminotransferase 34 U/L (4-35); Albumin Level 3.2 g/dL (3.5-5.1); Alkaline Phosphatase 52 U/L (38-126); Anion Gap 7 mmol/L (8-16); Aspartate Amino Transferase 90 U/L (14-36); Bilirubin,Total 0.5 mg/dL (0.2-1.3); Blood Urea Nitrogen 49 mg/dL (7-17); Calcium 8.6 mg/dL (8.4-10.2); Carbon Dioxide 27 mmol/L (22-30); Chloride 104 mmol/L (98-107); Estimated CRCL calculation 21 ml/min; Estimated Glomerular Filt Rate 33; Glucose 107 mg/dL (65-105); Potassium 4.3 mmol/L (3.4-5.0); Sodium 138 mmol/L (137-145)
[2020-08-15] MEDS: DEXAMETHASONE 2 MG TABLET 6 MG PO (09:10)
[2020-08-15] MEDS: CHOLECALCIFEROL 1,000 UNITS TABLET 1000 UNITS PO (09:10)
[2020-08-15] MEDS: ASCORBIC ACID 500 MG TABLET PO (09:10)
[2020-08-15] MEDS: ENOXAPARIN 30 MG/0.3 ML SYRINGE SUB-Q (09:10)
[2020-08-15] MEDS: FENOFIBRATE 160 MG TABLET PO (09:11)
[2020-08-15] MEDS: RIVASTIGMINE TARTRATE 1.5 MG CAPSULE 4.5 MG PO ×2 (09:11→16:04)
[2020-08-15] MEDS: LORATADINE 10 MG TABLET PO (09:11)
[2020-08-15] MEDS: VALSARTAN 40 MG TABLET BY MOUTH (09:12)
[2020-08-15] MEDS: ZINC SULFATE 220 MG CAPSULE PO (09:12)
[2020-08-15] MEDS: ALBUTEROL SULFATE (*SP) AEROSOL 1 PUFF 2 PUFF INHALATION ×3 (10:42→20:17)
[2020-08-15] MEDS: FLUTICASONE/UMECLIDIN/VILANTER 100-62.5-25 MCG ELLIPTA 1 PUFF INHALATION (10:42)
--- NOTE | 2020-08-15 14:46 | PM.IMPN ---
Progress Note: A&P Assessment and Plan (1) COVID-19: Code(s): U07.1 - COVID-19 Status: Acute Assessment and Plan: COVID positive 08/10/20. -Continue dexamethasone (day 5). - Not a good candidate for remdesivir given her renal function. Although it is improving, there may be more risk than benefit within new study showing questionable efficacy. -Continue supplemental O2 and wean as tolerated to keep O2 saturations > 90%. She continues to be at 15 L, I spoke to the nurse about weaning her down. -Continue supportive care with Tylenol for fevers, albuterol MDI, incentive spirometer, supplementation of Zinc, vitamins C and D. -DVT prophylaxis with renally dosed Lovenox. -spoke with Elver as well as the daughter Brendon about the plan of care and they agree. Continue full code status (2) Acute respiratory failure with hypoxia: Code(s): J96.01 - Acute respiratory failure with hypoxia Status: Acute Assessment and Plan: Secondary to above. Remote history of lung cancer s/p partial lobectomy left lung. -patient doing well on non-rebreather -there have been issues with the pulse oximeter. We are going to try a head band device and continuous pulse ox to try to get a better read (3) KOMAL (acute kidney injury): Code(s): N17.9 - Acute kidney failure, unspecified Status: Acute Assessment and Plan: Improved since admission - Family was unaware she had any issues with her kidneys however Cr was 2.1 one year ago suggesting some degree of CKD. -She was treated with IV fluids on arrival which are stopped as she has COVID with respiratory failure. -Avoid nephrotoxic agents and monitor renal function. (4) Dementia without behavioral disturbance: Qualifiers: Dementia type: unspecified type Qualified Code(s): F03.90 - Unspecified dementia without behavioral disturbance Code(s): F03.90 - Unspecified dementia without behavioral disturbance Status: Chronic Assessment and Plan: Confused today with no neurological deficits -lives at home with her (5) Hypothyroidism, unspecified: Qualifiers: Hypothyroidism type: unspecified Qualified Code(s): E03.9 - Hypothyroidism, unspecified Code(s): E03.9 - Hypothyroidism, unspecified Status: Chronic Assessment and Plan: Continue levothyroxine (6) Chronic obstructive pulmonary disease, unspecified: Qualifiers: COPD type: unspecified COPD Qualified Code(s): J44.9 - Chronic obstructive pulmonary disease, unspecified Code(s): J44.9 - Chronic obstructive pulmonary disease, unspecified Status: Chronic Assessment and Plan: Continue inhalers, no wheezing on exam today (7) H/O: HTN (hypertension): Code(s): Z86.79 - Personal history of other diseases of the circulatory system Status: Chronic Assessment and Plan: last blood pressure 133/56 -Hold diuretics secondary to acute renal failure. -Continue valsartan. - Monitor BP and adjust treatment as needed. Subjective Date/time seen: 08/15/20 14:46 Interval history: Pt is a 80-year-old female here for COVID. Patient has dementia and I am not sure how much she understands. She denies nausea, vomiting, fevers, chills, constipation, diarrhea, chest pain, sob, or abdominal pain. She denied having COVID-19 although she was told she test positive multiple times. Nurse aid at bedside says she hasn't been eating much. I spoke with marshall who states she lives at home with him and hasn't been eating much in the last few months due to her dementia. I also spoke with brendon as well after getting permission from marshall and we spoke about the plan of care. They would like Karla to remain a full code and understand if she worsens she may need to be on a ventilator in the ICU and they agree. Exam Narrative: Exam Narrative: General: Well d
--- NOTE | 2020-08-15 15:31 | PC.NURSE ---
1200 spoke with pt family verified pt's code status . they are positive she is a full code.
[2020-08-15 16:53] LABS: Alveolar/Arterial O2 Gradient 650.4 mmHg; Base Excess ABG -1.3 mEq/l (+/-2.0); Carboxyhemoglobin 0.3 % THb (0-2.0); Fractional Inspired Oxygen 100 %; HCO3 ABG 20.4 mEq/l (22.0-26.0); Methemoglobin ABG 0.2 %THb (0-1.5); Oxygen Content ABG 13.7 %vol (16.0-22.0); Oxyhemoglobin 72.5 % THb (90.0-100.0); PCO2 ABG 26.7 mmHg (35.0-45.0); PO2 FiO2 Ratio Arterial Blood 0.36 %; Total Hemoglobin 13.5 g/dL (12.0-18.0); pH ABG 7.502 (7.350-7.450)
[2020-08-15 16:58] LABS: PO2 ABG 35.9 mmHg (80.0-100.0)
[2020-08-15 17:00] LABS: Oxygen Saturation ABG 75.5 % (95.0-100.0)
[2020-08-15 17:02] LABS: Site Drawn RIGHT BRACHIAL
[2020-08-15 17:03] LABS: Device NON-REBREATHER MASK
[2020-08-15 17:14] LABS: CRP 4.3 mg/dL (<1.0); Lactate Dehydrogenase 1414 U/L (313-618)
[2020-08-15 17:21] LABS: NT Pro B Type Natriuretic Pept 519 PG/ML (5-100)
--- NOTE | 2020-08-15 18:57 | PC.NURSE ---
This patient, Karla Smith, was received from [facility] on [facility] at 1857. Patient oriented to unit policies and routines
[2020-08-15] MEDS: LORazepam INJ (*CRX) 2 MG/ML VIAL 0.5 MG IV PUSH (22:49)
--- NOTE | 2020-08-15 23:13 | PC.NURSE ---
Received phone call from pt family. Informed daughter Shayla about pt moving to IMU on aervo 60 L which is very high. She expressed concern about what would happen if this oxygenation failed. We discussed a ventilator, code status, labs, ABG, etc. She stated that she did not like that idea but did not want her mom to be given up on. Discussed a DNR that would still allow treatment without code/intubation. Daughter stated most important thing to her was that pt's would be able to say goodbye. Conversation ended with daughter wanting to talk with pt tomorrow and wanting to get updated if any status changes occurred. Provided pt IMU phone number. Passed this report on to Juju in IMU.
[2020-08-16] VITALS (16 sets, daily range): BP systolic 112–169; BP diastolic 45–78; PULSE 59–92; RESP 14–26; TEMP 35.9–36.9; O2SAT 88–98
--- NOTE | 2020-08-16 00:16 | PC.NURSE ---
This nurse spoke with daughter Shayla Mullins and Toñito Smith regarding patients code status. After daughter Shayla spoke with Nahum LORA in detail about code statuses and what each entailed, the daughter and decided to change patients code status. This RN received a call from both and daughter stating they wish for patient to be Do Not Resuscitate status. Will speak with Dr. Araiza.
[2020-08-16] MEDS: ALBUTEROL SULFATE (*SP) AEROSOL 1 PUFF 2 PUFF INHALATION ×4 (01:48→23:45)
[2020-08-16 04:18] LABS: Hematocrit 34.5 % (37.0-47.0); Hemoglobin 11.8 g/dL (12.0-15.0); Mean Corpuscular HGB Conc 34.2 g/dl (32-36); Mean Corpuscular Hemoglobin 31.8 pg (26-34); Mean Platelet Volume 9.3 fl (7.4-10.4); Platelet Count Result 364 k/mm3 (150-375); Red Blood Count 3.71 M/mm3 (4.2-5.4); Red Cell Distribution Width 13.7 % (11.5-14.5); White Blood Count 13.4 K/mm3 (4.5-10.0)
[2020-08-16 04:30] LABS: Alanine Aminotransferase 31 U/L (4-35); Albumin Level 3.3 g/dL (3.5-5.1); Alkaline Phosphatase 60 U/L (38-126); Anion Gap 9 mmol/L (8-16); Aspartate Amino Transferase 75 U/L (14-36); Bilirubin,Total 0.5 mg/dL (0.2-1.3); Blood Urea Nitrogen 47 mg/dL (7-17); Carbon Dioxide 25 mmol/L (22-30); Chloride 108 mmol/L (98-107); Estimated CRCL calculation 23 ml/min; Estimated Glomerular Filt Rate 36; Glucose 102 mg/dL (65-105); Potassium 3.9 mmol/L (3.4-5.0); Sodium 142 mmol/L (137-145)
[2020-08-16] MEDS: LEVOTHYROXINE SODIUM 50 MCG TABLET PO (07:22)
[2020-08-16] MEDS: DEXAMETHASONE 2 MG TABLET 6 MG PO (08:26)
[2020-08-16] MEDS: CHOLECALCIFEROL 1,000 UNITS TABLET 1000 UNITS PO (08:26)
[2020-08-16] MEDS: ASCORBIC ACID 500 MG TABLET PO (08:26)
[2020-08-16] MEDS: ENOXAPARIN 30 MG/0.3 ML SYRINGE SUB-Q ×2 (08:26→20:46)
[2020-08-16] MEDS: FENOFIBRATE 160 MG TABLET PO (08:27)
[2020-08-16] MEDS: ZINC SULFATE 220 MG CAPSULE PO (08:27)
[2020-08-16] MEDS: LORATADINE 10 MG TABLET PO (08:27)
[2020-08-16] MEDS: FLUTICASONE/UMECLIDIN/VILANTER 100-62.5-25 MCG ELLIPTA 1 PUFF INHALATION (08:27)
[2020-08-16] MEDS: RIVASTIGMINE TARTRATE 1.5 MG CAPSULE 4.5 MG PO (08:28)
[2020-08-16] MEDS: VALSARTAN 40 MG TABLET BY MOUTH (08:28)
[2020-08-16] MEDS: LORazepam INJ (*CRX) 2 MG/ML VIAL 0.5 MG IV PUSH ×2 (08:30→15:06)
--- NOTE | 2020-08-16 13:44 | PM.IMPN ---
Progress Note: A&P Assessment and Plan (1) COVID-19: Code(s): U07.1 - COVID-19 Status: Acute Assessment and Plan: COVID positive 08/10/20. -Desatted yesterday afternoon and placed on high flow therapy -She dropped earlier today as she was pulling off her mask but now up to 95 with restraints and non rebreather. -Continue dexamethasone (day 6). - Not a good candidate for remdesivir given her renal function. Although it is improving, there may be more risk than benefit within new study showing questionable efficacy. -Continue supplemental O2 and wean as tolerated to keep O2 saturations > 90%. -Continue supportive care with Tylenol for fevers, albuterol MDI, incentive spirometer, supplementation of Zinc, vitamins C and D. -DVT prophylaxis with renally dosed Lovenox BID -spoke Toñito, , who is aware of condition and pt is now a DNR -poor prognosis (2) Acute respiratory failure with hypoxia: Code(s): J96.01 - Acute respiratory failure with hypoxia Status: Acute Assessment and Plan: Secondary to above. Remote history of lung cancer s/p partial lobectomy left lung. -see above (3) KOMAL (acute kidney injury): Code(s): N17.9 - Acute kidney failure, unspecified Status: Acute Assessment and Plan: Improved since admission - Family was unaware she had any issues with her kidneys however Cr was 2.1 one year ago suggesting some degree of CKD. -She was treated with IV fluids on arrival which are stopped as she has COVID with respiratory failure. -Avoid nephrotoxic agents and monitor renal function. (4) Dementia without behavioral disturbance: Qualifiers: Dementia type: unspecified type Qualified Code(s): F03.90 - Unspecified dementia without behavioral disturbance Code(s): F03.90 - Unspecified dementia without behavioral disturbance Status: Chronic Assessment and Plan: Confused today with no neurological deficits -lives at home with her (5) Hypothyroidism, unspecified: Qualifiers: Hypothyroidism type: unspecified Qualified Code(s): E03.9 - Hypothyroidism, unspecified Code(s): E03.9 - Hypothyroidism, unspecified Status: Chronic Assessment and Plan: Continue levothyroxine (6) Chronic obstructive pulmonary disease, unspecified: Qualifiers: COPD type: unspecified COPD Qualified Code(s): J44.9 - Chronic obstructive pulmonary disease, unspecified Code(s): J44.9 - Chronic obstructive pulmonary disease, unspecified Status: Chronic Assessment and Plan: Continue inhalers, no wheezing on exam today (7) H/O: HTN (hypertension): Code(s): Z86.79 - Personal history of other diseases of the circulatory system Status: Chronic Assessment and Plan: last blood pressure 112/54 -Hold diuretics secondary to acute renal failure. -Continue valsartan. - Monitor BP and adjust treatment as needed. (8) Transaminitis: Code(s): R74.01 - Elevation of levels of liver transaminase levels Status: Acute Assessment and Plan: Improving -likely d/t covid -monitor Additional Plan spoke with Dr. Neri about plan of care Subjective Date/time seen: 08/16/20 13:44 Interval history: Pt is a 80-year-old female here for COVID PNA. Pt was seen today and stated she felt SOB when moving but had no complaints at the time. She stated she was comfortable. She denies CP, fevers, chills, nausea, vomiting or diarrhea. Exam Narrative: Exam Narrative: General: Well developed well nourished patient in NAD HEENT: normocephalic Neck: supple Neuro: Alert and oriented to herself, her husbands name, birthday but did not know the situation, location or the year (baseline since she has been here). She used all limbs spontaneously and did not appear to have any deficits CV:RRR Resp: Regular respiratory rate without distress or re
[2020-08-17] VITALS (13 sets, daily range): BP systolic 135–172; BP diastolic 64–96; PULSE 61–879; RESP 18–32; TEMP 35.9–36.9; O2SAT 89–96
[2020-08-17 05:32] LABS: Hematocrit 37.7 % (37.0-47.0); Hemoglobin 12.8 g/dL (12.0-15.0); Mean Corpuscular Hemoglobin 31.8 pg (26-34); Mean Corpuscular Volume 93.8 fl (80-100); Mean Platelet Volume 9.2 fl (7.4-10.4); Platelet Count Result 381 k/mm3 (150-375); Red Blood Count 4.02 M/mm3 (4.2-5.4); Red Cell Distribution Width 13.8 % (11.5-14.5); White Blood Count 13.4 K/mm3 (4.5-10.0)
[2020-08-17 05:57] LABS: Alanine Aminotransferase 28 U/L (4-35); Albumin Level 3.4 g/dL (3.5-5.1); Alkaline Phosphatase 65 U/L (38-126); Anion Gap 9 mmol/L (8-16); Aspartate Amino Transferase 65 U/L (14-36); Bilirubin,Total 0.6 mg/dL (0.2-1.3); Blood Urea Nitrogen 47 mg/dL (7-17); CRP 5.2 mg/dL (<1.0); Calcium 9.1 mg/dL (8.4-10.2); Carbon Dioxide 25 mmol/L (22-30); Chloride 109 mmol/L (98-107); Estimated CRCL calculation 26 ml/min; Estimated Glomerular Filt Rate 43; Glucose 88 mg/dL (65-105); Lactate Dehydrogenase 1366 U/L (313-618); Potassium 3.9 mmol/L (3.4-5.0); Sodium 143 mmol/L (137-145)
--- NOTE | 2020-08-17 08:05 | PC.NURSE ---
Called and left message with TIFFANIE Rae regarding patient medications. Awaiting return call
[2020-08-17] MEDS: ALBUTEROL SULFATE (*SP) AEROSOL 1 PUFF 2 PUFF INHALATION ×2 (08:55→14:46)
[2020-08-17] MEDS: ENOXAPARIN 30 MG/0.3 ML SYRINGE SUB-Q (08:56)
[2020-08-17] MEDS: FLUTICASONE/UMECLIDIN/VILANTER 100-62.5-25 MCG ELLIPTA 1 PUFF INHALATION (08:56)
--- NOTE | 2020-08-17 09:15 | PC.NURSE ---
Spoke with TIFFANIE Rae regarding patient increase in oxygenation needs and increase confusing. Unable to give patient medication safely via PO route. Awaiting TIFFANIE Graf to come assess patient before administering medications
--- NOTE | 2020-08-17 10:01 | ECG_ITS ---
Measurements Intervals [place] Rate: 120 P: 36 VA: 129 QRS: 21 QRSD: 90 T: 61 QT: 307 QTc: 435 Interpretive Statements SINUS TACHYCARDIA EARLY PRECORDIAL R/S TRANSITION NONSPECIFIC ST & T-WAVE ABNORMALITY- DIFFUSE LEADS BASELINE ARTIFACT- I, II, III, AVR, AVL, AVF, V1, V3-V4 ABNORMAL ECG Electronically Signed On 08-17-2020 10:40:02 [employer] by Edwin Stringer D.O.
--- NOTE | 2020-08-17 10:02 | PC.NURSE ---
Addendum entered by Saige Mohan RN 08/17/20 10:21: At time of note, still awaiting PA to come and assess patient Original Note: Notified TIFFANIE Rae that patient's heart rate has been in the 90's to low 100's since start of shift. Patient's heart rate now 120-135 for last 30 minutes. New order to obtain 12 lead EKG
[2020-08-17] MEDS: LORazepam INJ (*CRX) 2 MG/ML VIAL 0.5 MG IV PUSH (10:44)
[2020-08-17] MEDS: DEXAMETHASONE 2 MG TABLET 6 MG PO (10:44)
[2020-08-17] MEDS: RIVASTIGMINE TARTRATE 1.5 MG CAPSULE 4.5 MG PO (10:45)
--- NOTE | 2020-08-17 11:47 | PM.IMPN ---
Progress Note: A&P Assessment and Plan (1) COVID-19: Code(s): U07.1 - COVID-19 Status: Acute Assessment and Plan: COVID positive 08/10/20. -patient continues to be borderline hypoxic even with high-flow nasal cannula and non-rebreather -Continue dexamethasone (day 7). - Not a good candidate for remdesivir given her renal function. Although it is improving, there may be more risk than benefit within new study showing questionable efficacy. -Continue supplemental O2 and wean as tolerated to keep O2 saturations > 90%. -Continue supportive care with Tylenol for fevers, albuterol MDI, incentive spirometer, supplementation of Zinc, vitamins C and D. -DVT prophylaxis with renally dosed Lovenox BID -spoke with Toñito, , about her poor prognosis and how long comfortable she is. We had a long talk about hospice. He wants to speak with his daughter and 2 sons and will likely have a decision at the latest by tomorrow morning. (2) Acute respiratory failure with hypoxia: Code(s): J96.01 - Acute respiratory failure with hypoxia Status: Acute Assessment and Plan: Secondary to above. Remote history of lung cancer s/p partial lobectomy left lung. -see above (3) KOMAL (acute kidney injury): Code(s): N17.9 - Acute kidney failure, unspecified Status: Acute Assessment and Plan: Improved since admission - Family was unaware she had any issues with her kidneys however Cr was 2.1 one year ago suggesting some degree of CKD. -She was treated with IV fluids on arrival which are stopped as she has COVID with respiratory failure. -Avoid nephrotoxic agents and monitor renal function. (4) Dementia without behavioral disturbance: Qualifiers: Dementia type: unspecified type Qualified Code(s): F03.90 - Unspecified dementia without behavioral disturbance Code(s): F03.90 - Unspecified dementia without behavioral disturbance Status: Chronic Assessment and Plan: Confused today with no neurological deficits -lives at home with her (5) Hypothyroidism, unspecified: Qualifiers: Hypothyroidism type: unspecified Qualified Code(s): E03.9 - Hypothyroidism, unspecified Code(s): E03.9 - Hypothyroidism, unspecified Status: Chronic Assessment and Plan: Continue levothyroxine (6) Chronic obstructive pulmonary disease, unspecified: Qualifiers: COPD type: unspecified COPD Qualified Code(s): J44.9 - Chronic obstructive pulmonary disease, unspecified Code(s): J44.9 - Chronic obstructive pulmonary disease, unspecified Status: Chronic Assessment and Plan: Continue inhalers, no wheezing on exam today (7) H/O: HTN (hypertension): Code(s): Z86.79 - Personal history of other diseases of the circulatory system Status: Chronic Assessment and Plan: last blood pressure 135/75 -Hold diuretics secondary to acute renal failure. -Continue valsartan. - Monitor BP and adjust treatment as needed. (8) Transaminitis: Code(s): R74.01 - Elevation of levels of liver transaminase levels Status: Acute Assessment and Plan: Improving -likely d/t covid -monitor (9) Sinus tachycardia: Code(s): R00.0 - Tachycardia, unspecified Status: Acute Assessment and Plan: EKG reviewed, appears to be sinus tachycardia -likely due to agitation with restraints, hypoxia and being NPO -continue Ativan -she was repositioned and given some water and her heart rate and comfort level improved -will give her a small amount of IV fluids as she looks extremely dry and has be NPO for days Subjective Date/time seen: 08/17/20 11:47 Interval history: Pt is a 80-year-old female here for COVID PNA. Pt was seen today and states she feels short of breath and is thirsty. I spoke to the nurse who states pt did not do well overnight and was desatting
[2020-08-17] MEDS: VALSARTAN 40 MG TABLET BY MOUTH (12:22)
[2020-08-17] MEDS: SODIUM CHLORIDE 0.9% IV 250 ML 75 ML IV CONT (12:30)
--- NOTE | 2020-08-17 13:09 | PCNWS ---
Weekly nutritional screen. Diet order has advanced to a full liquid diet. Patient currently requiring large amounts of oxygen, high flow. COVID positive. Poor prognosis noted. Family will be talking this weekend in regards to further care. No nutritional needs at this time.
--- NOTE | 2020-08-17 17:07 | PM.DS ---
DS: Admitting Diagnosis Admitting Diagnosis Admitting Diagnosis: komal,weakness,hypoxia DS: Discharge Diagnosis Discharge Diagnosis (1) COVID-19: Code(s): U07.1 - COVID-19 Status: Acute Assessment and Plan: COVID positive 08/10/20. -patient had significant oxygen demand throughout her stay even with the thumb axis zone and high-flow oxygen -patients family decided to proceed with hospice -she received Decadron and Lovenox during her stay but not rim does appear due to her renal dysfunction. (2) Acute respiratory failure with hypoxia: Code(s): J96.01 - Acute respiratory failure with hypoxia Status: Acute Assessment and Plan: Secondary to above. Remote history of lung cancer s/p partial lobectomy left lung. (3) KOMAL (acute kidney injury): Code(s): N17.9 - Acute kidney failure, unspecified Status: Acute Assessment and Plan: Improved since admission - Family was unaware she had any issues with her kidneys however Cr was 2.1 one year ago suggesting some degree of CKD. -She was treated with IV fluids on arrival which are stopped as she has COVID with respiratory failure. -improved at discharge (4) Dementia without behavioral disturbance: Qualifiers: Dementia type: unspecified type Qualified Code(s): F03.90 - Unspecified dementia without behavioral disturbance Code(s): F03.90 - Unspecified dementia without behavioral disturbance Status: Chronic Assessment and Plan: Confused today with no neurological deficits -lives at home with her (5) Hypothyroidism, unspecified: Qualifiers: Hypothyroidism type: unspecified Qualified Code(s): E03.9 - Hypothyroidism, unspecified Code(s): E03.9 - Hypothyroidism, unspecified Status: Chronic Assessment and Plan: Continue levothyroxine (6) Chronic obstructive pulmonary disease, unspecified: Qualifiers: COPD type: unspecified COPD Qualified Code(s): J44.9 - Chronic obstructive pulmonary disease, unspecified Code(s): J44.9 - Chronic obstructive pulmonary disease, unspecified Status: Chronic Assessment and Plan: Continue inhalers, no wheezing on exam today (7) H/O: HTN (hypertension): Code(s): Z86.79 - Personal history of other diseases of the circulatory system Status: Chronic Assessment and Plan: last blood pressure 138/96 (8) Transaminitis: Code(s): R74.01 - Elevation of levels of liver transaminase levels Status: Acute Assessment and Plan: Improving -likely d/t covid -monitor (9) Sinus tachycardia: Code(s): R00.0 - Tachycardia, unspecified Status: Acute Assessment and Plan: EKG reviewed, appears to be sinus tachycardia -likely due to agitation with restraints, hypoxia and being NPO -continue Ativan -she was repositioned and given some water and her heart rate and comfort level improved DS: Summary Hospital Course Reason for hospitalization: COVID pneumonia Hospital Course: Patient is a 80-year-old female with a history of dementia who presented emergency room on 08/10/20 for poor appetite, general john weakness, and lethargy with some shortness of breath. Vitals in the ER were temp 36.9, pulse 77, rr 18, bp 93/59, and pulse 95. Labs showed KOMAL with Cr 3.3 on admission likely due to decreased appetite. liver enzymes elevated 80-100 as well. CXR was negative on admission initially but pt was started on o2 and admitted to the hospitalist service. She was tested for Covid and found to be positive. Her CXR worsened 08/13 and pt continued to require more and more o2. Her kidney and liver enzymes improved with IV hydration. Pt was started on decadron but not Remdesivir due to renal failure. The patient is continue to require more O2 and was transferred to the IMU where she was placed on Airvo and non-rebreather. Chest x-ray
--- NOTE | 2020-08-18 01:19 | PC.NURSE ---
Pt to be discharged via [facility] service. EMS left IMU with pt at 2230. GUIDO Jain from [facility] notified at 2231 ([phone]). Shayla ([phone]), pt's daughter, also notified at 2231 that pt was on her way home.
== END 2020-08-17 22:31 | disposition hospice, home (50) | DRG 177 ==
LOC: ANHED 17:02 → ANH3MEDSUR 17:43 → ANHIMU 08-17 17:07 → ANH3MEDSUR 08-20 14:28 → ANHIMU 08-20 14:28
PROVIDERS: Family Medicine; Physician Assistant; Admitting Provider Internal Medicine; Emergency Provider Emergency Medicine; PCP Family Medicine; Visit Provider Physician Assistant
DX: U07.1 COVID-19 (principal); J96.01 Acute respiratory failure with hypoxia; J12.89 Other viral pneumonia; N17.9 Acute kidney failure, unspecified; E87.1 Hypo-osmolality and hyponatremia; J44.0 Chronic obstructive pulmonary disease with (acute) lower respiratory infection; E86.0 Dehydration; F03.90 Unspecified dementia, unspecified severity, without behavioral disturbance, psychotic disturbance, mood disturbance, and anxiety; E03.9 Hypothyroidism, unspecified; F17.210 Nicotine dependence, cigarettes, uncomplicated; I12.9 Hypertensive chronic kidney disease with stage 1 through stage 4 chronic kidney disease, or unspecified chronic kidney disease; N18.30 Chronic kidney disease, stage 3 unspecified; R74.01 Elevation of levels of liver transaminase levels; N32.81 Overactive bladder; R00.0 Tachycardia, unspecified; Z66 Do not resuscitate; Z79.899 Other long term (current) drug therapy; Z85.118 Personal history of other malignant neoplasm of bronchus and lung; Z90.2 Acquired absence of lung [part of]
CPT/HCPCS: 36415; 36600; 71045; 80048; 80053; 80076; 81001; 82375; 82728; 82805; 83050; 83605; 83615; 83735; 83880; 85025; 85027; 85380; 85610; 85730; 86140; 87040; 87635; 93005; 94640; 96360; 96361; 96365; 96367; 96372; 97110; 97116; 97162; 97165; 97530; 99283; 99285; A9270; C9803; G0378; J0131; J1650; J1940; J2060; J3420; J3475; J7030; J7050; J8540; U0003